=== PATIENT | female | born 1985 | race Caucasian/White ===

== ENCOUNTER 2017-08-11 04:44 | Emergency (ER) | payer BC ==
[~2017-08-11] VITALS: Ht 152.4 cm; Wt 70.0 kg
[~2017-08-11 04:44] MED LIST: ADVAIR 250/501 DISK IH; ALEVE220 MG PO; ATIVAN0.5 MG PO; BENTYL20 MG PO; ESTROGEN; HYDROCODON-ACE1 EAC7 PO; LOVENOX40 MG/0.4 SC; NORCO 5/3251 TABLET PO; PERCOCET 5/31 TABLET PO; PHENERGAN12.5 M1 PO; PREDNISONE5 MG PO; PROAIR HFA8.5 GM IH; PROGESTERONE50 MG/ML IM; PROMETHAZINE HC25 M1 PO; SYNTHROID75 MCG PO; ZOFRAN ODT4 MG PO; ZOFRAN ODT8 MG PO; vitamin d PO
[2017-08-11 05:34] LABS: CHLORIDE 105 mEq/L (99-109); POTASSIUM 4.1 mEq/L (3.7-5.4); SODIUM 138 mEq/L (136-147)
[2017-08-11 05:36] LABS: GLUCOSE 134 mg/dL (70-99)
[2017-08-11 05:38] LABS: ANION GAP 10 MEQ/L (2-14)
[2017-08-11 05:39] LABS: HEMATOCRIT 36.9 % (36.0-46.0); MCHC 33.3 G/DL (30.0-36.0); MEAN PLAT.VOLUME 11.1 uM^3 (9.5-12.4); PLATELET COUNT 263 K/uL (156-360); RBC DIS.WIDTH-CV 11.7 % (11.8-14.6); RBC DIS.WIDTH-SD 38.1 % (39-53)
[2017-08-11 05:40] LABS: GFR ESTIMATE (CALCULATED) > 59 mL/min/
[2017-08-11 05:41] LABS: UREA NITROGEN (BUN) 13 mg/dL (9-23)
[2017-08-11 06:00] LABS: ADD MIUA? YES; BILIRUBIN NEGATIVE; BLOOD LARGE; COLOR AMBER ((YELLOW)); GLUCOSE (STRIP) 50; KETONES NEGATIVE; LEUKOCYTES NEGATIVE; NITRITE NEGATIVE; PROTEIN (STRIP) 100; SPECIFIC GRAVITY 1.012 (1.000-1.030); UROBILINOGEN 0.2 MG/DL (0.2-1.0)
[2017-08-11 06:23] LABS: RED BLOOD CELLS TNTC /HPF (0-5); UCUL ADDED? YES
[2017-08-11] MEDS ORDERED: PERCOCET 5/31 TABLET PO (07:16)
[2017-08-11 07:45] VITALS: BP 146/98
== END 2017-08-11 07:35 | disposition home or self-care (01) ==
LOC: EME → EDBD 04:44 → EME 04:44
PROVIDERS: Emergency Medicine
PROC: 0T9B70Z Drainage of Bladder with Drainage Device, Via Natural or Artificial Opening (ICD-10-PCS; principal; 2017-08-11)
DX: G89.18 Other acute postprocedural pain (principal); R10.9 Unspecified abdominal pain; R33.9 Retention of urine, unspecified; R31.9 Hematuria, unspecified; M54.5 Low back pain; R11.0 Nausea; Z90.721 Acquired absence of ovaries, unilateral; Z98.890 Other specified postprocedural states; Z90.710 Acquired absence of both cervix and uterus; J45.909 Unspecified asthma, uncomplicated; K76.89 Other specified diseases of liver; J98.11 Atelectasis
CPT/HCPCS: 74177; 80048; 81003; 85027; 87086; 99281; 99285; J2405; J3010; J7030

== ENCOUNTER 2018-02-22 07:21 | Emergency (ER) | payer BC ==
[~2018-02-22] VITALS: Ht 152.4 cm; Wt 72.8 kg
[2018-02-22 08:15] LABS: HEMATOCRIT 41.4 % (36.0-46.0); HEMOGLOBIN 14.4 G/DL (11.9-15.5); MCH 30.3 PG (29.0-34.0); MCHC 34.8 G/DL (30.0-36.0); MCV 87.2 FL (83-99); PLATELET COUNT 357 K/uL (156-360); RED BLOOD COUNT 4.75 M/uL (3.80-5.20); WHITE BLOOD COUNT 11.6 K/uL (4.1-10.2)
[2018-02-22 08:36] LABS: ALBUMIN 4.7 G/DL (3.2-4.8); CHLORIDE 105 MEQ/L (99-109); POTASSIUM 3.4 MEQ/L (3.7-5.4); SODIUM 139 MEQ/L (136-147); TOTAL BILIRUBIN 0.6 MG/DL (0.0-1.0)
[2018-02-22 08:42] LABS: ALKALINE PHOSPHATASE 46 IU/L (3-129); ALT (GPT) 12 IU/L (3-49); AST (GOT) 10 IU/L (2-34); CREATININE 0.8 MG/DL (0.6-1.3); GFR ESTIMATE (CALCULATED) > 59 mL/min/; GLUCOSE 128 mg/dL (70-99); TOTAL PROTEIN 7.6 G/DL (6.4-8.3); UREA NITROGEN (BUN) 9 mg/dL (9-23)
[2018-02-22 08:46] LABS: QUANTITATIVE HCG < 4.0 MIU/ML
[2018-02-22 08:50] LABS: APPEARANCE CLEAR ((CLEAR)); BILIRUBIN NEGATIVE; BLOOD NEGATIVE; COLOR YELLOW ((YELLOW)); GLUCOSE (STRIP) NEGATIVE; KETONES NEGATIVE; LEUKOCYTES NEGATIVE; NITRITE NEGATIVE; PROTEIN (STRIP) NEGATIVE; SPECIFIC GRAVITY 1.013 (1.000-1.030); UCUL ADDED? NO; UROBILINOGEN 0.2 MG/DL (0.2-1.0)
[2018-02-22 09:24] LABS: LIPASE 15 U/L (1.0-51.0)
[2018-02-22] MEDS ORDERED: CARAFATE1 GM PO (10:11)
[2018-02-22] MEDS ORDERED: PHENERGAN25 MG PR (14:08)
[2018-02-22 14:34] VITALS: BP 117/71
== END 2018-02-22 14:35 | disposition home or self-care (01) ==
LOC: EME 07:21
DX: K29.70 Gastritis, unspecified, without bleeding (principal); R93.5 Abnormal findings on diagnostic imaging of other abdominal regions, including retroperitoneum; I10 Essential (primary) hypertension; K58.9 Irritable bowel syndrome, unspecified; K90.0 Celiac disease; J45.909 Unspecified asthma, uncomplicated; Z79.51 Long term (current) use of inhaled steroids; Z79.891 Long term (current) use of opiate analgesic; Z87.42 Personal history of other diseases of the female genital tract; Z90.710 Acquired absence of both cervix and uterus; Z88.0 Allergy status to penicillin
CPT/HCPCS: 74177; 80053; 81003; 83690; 84702; 85027; 99281; 99285; J0780; J2405; J3010; J7040